=== PATIENT | male | born 1960 | race Caucasian/White ===

== ENCOUNTER 2024-10-08 11:16 | Emergency (ER) | payer OTHER ==
[~2024-10-08] VITALS: Ht 172.7 cm; Wt 122.5 kg
[2024-10-08 11:32] VITALS: PULSE 86; RESP 18; TEMP 99.7; O2SAT 100
== END 2024-10-08 13:08 | disposition home or self-care (01) ==
LOC: ER 11:34
DX: R33.9 Retention of urine, unspecified (principal); I10 Essential (primary) hypertension; E11.9 Type 2 diabetes mellitus without complications; E78.5 Hyperlipidemia, unspecified; I50.9 Heart failure, unspecified; I25.10 Atherosclerotic heart disease of native coronary artery without angina pectoris; Z95.810 Presence of automatic (implantable) cardiac defibrillator
CPT/HCPCS: 51700; 99283

== ENCOUNTER 2024-12-12 05:20 | Inpatient (IN) | payer OTHER ==
[2024-12-08 11:38] LABS: BASOPHILS # (AUTO) 0.1 (0.0-0.1); BASOPHILS % 0.6 % (0.0-1.0); EOSINOPHILS # (AUTO) 0.3 (0.0-0.4); EOSINOPHILS % 3.4 % (0.0-6.0); HEMOGLOBIN 11.3 g/dL (14.0-18.0); LYMPHOCYTES # (AUTO) 1.2 (1.0-3.2); LYMPHOCYTES % 13.1 % (18.0-39.1); MEAN CORPUSCULAR HGB CONC 29.7 g/dL (31-35); MEAN CORPUSCULAR VOLUME 94.1 fL (81-99); MONOCYTES # (AUTO) 0.7 (0.2-0.8); MONOCYTES % 7.5 % (4.4-11.3); NEUTROPHILS # (AUTO) 6.6 (2.1-6.9); NEUTROPHILS % 75.2 % (38.7-80.0); PLATELET COUNT 210 x10e3/uL (140-360); RED BLOOD COUNT 4.04 x10e6/uL (4.3-5.7); RED CELL DISTRIBUTION WIDTH 15.2 % (11.7-14.4); WHITE BLOOD COUNT 8.75 x10e3/uL (4.8-10.8)
[2024-12-08 11:55] LABS: INR 0.97; PROTHROMBIN TIME 13.5 seconds (11.9-14.5)
[2024-12-08 11:56] LABS: PARTIAL THROMBOPLASTIN TIME 32.6 seconds (23.8-35.5)
[2024-12-08 11:58] LABS: ANION GAP 14.7 mmol/L (8-16); CALCIUM 8.8 mg/dL (8.4-10.2); CREATININE, SERUM 2.33 mg/dL (0.72-1.25); POTASSIUM 4.7 mmol/L (3.5-5.1)
[2024-12-12] VITALS (8 sets, daily range): BP systolic 137–165; BP diastolic 79–93; PULSE 60–70; RESP 18–20; TEMP 97.5–98.1; O2SAT 95–100
[~2024-12-12] VITALS: Ht 172.7 cm; Wt 119.7 kg
[~2024-12-12 05:20] MED LIST: ATORVASTATIN CA20 MG PO; CARVEDILOL12.5 MG PO; DIOVAN160 MG PO; FINASTERIDE5 MG PO; FLOMAX0.4 MG PO; FUROSEMIDE40 MG PO; GLIPIZIDE5 MG PO; ISOSORBIDE MONO30 MG PO; LANTUS 3ML100 UNITS/ SQ; METOLAZONE5 MG PO
[2024-12-12] MEDS: CEFTRIAXONE 1 GM VIAL ONE (06:05)
[2024-12-12] MEDS: GENTAMICIN 80MG/NS 100 ML 200 ML IV ONE (06:06)
[2024-12-12] MEDS: SODIUM CHLORIDE 0.9% 1000ML 1,000 ML ONE (06:06)
[2024-12-12] MEDS ORDERED: FENTANYL CITRATE/PF 100MCG/2 ML INJ ONE (06:56)
[2024-12-12] MEDS ORDERED: LIDOCAINE HCL 2% LOCAL INJ 5 ML SDV VIAL INJ ONE (06:57)
[2024-12-12] MEDS ORDERED: MIDAZOLAM HCL 2 MG/2 ML VIAL ONE (06:57)
[2024-12-12] MEDS ORDERED: PROPOFOL IV EMULSION 10 MG/ML 20 ML VIAL ONE (06:57)
[2024-12-12] MEDS ORDERED: ROCURONIUM BROMIDE 1 ML IV ONE (06:57)
[2024-12-12] MEDS ORDERED: PHENYLEPHRINE HCL 1% 10 MG/ML VIAL ONE (07:13)
[2024-12-12] MEDS ORDERED: SUCCINYLCHOLINE CHLORIDE 20 MG/ML 10ML VIAL ONE (07:26)
[2024-12-12] MEDS ORDERED: FAMOTIDINE 20 MG/2 ML VIAL IV ONE (07:28)
[2024-12-12] MEDS ORDERED: ACETAMINOPHEN 1000 MG/100 ML 100 ML IV ONE (07:34)
[2024-12-12] MEDS ORDERED: ONDANSETRON HCL INJ 2MG/ML 2ML 2 MG/ML VIAL ONE (07:53)
[2024-12-12] MEDS ORDERED: SUGAMMADEX SODIUM 200 MG/2 ML VIAL IV ONE (07:55)
[2024-12-12] MEDS ORDERED: FUROSEMIDE INJ 10 MG/ML 4 ML VIAL ONE (08:10)
[2024-12-12] MEDS ORDERED: SEVOFLURANE INHAL SOLN 250 ML PEN BTL ONE (08:17)
[2024-12-12 10:42] LABS: BASOPHILS % 0.4 % (0.0-1.0); EOSINOPHILS # (AUTO) 0.2 (0.0-0.4); HEMATOCRIT 29.2 % (38.2-49.6); HEMOGLOBIN 9.1 g/dL (14.0-18.0); LYMPHOCYTES # (AUTO) 0.8 (1.0-3.2); LYMPHOCYTES % 9.7 % (18.0-39.1); MEAN CORPUSCULAR HEMOGLOBIN 27.7 pg (28-32); MEAN CORPUSCULAR HGB CONC 31.2 g/dL (31-35); MEAN CORPUSCULAR VOLUME 88.8 fL (81-99); MONOCYTES # (AUTO) 0.6 (0.2-0.8); NEUTROPHILS # (AUTO) 6.3 (2.1-6.9); NEUTROPHILS % 80.6 % (38.7-80.0); PLATELET COUNT 212 x10e3/uL (140-360); RED BLOOD COUNT 3.29 x10e6/uL (4.3-5.7); WHITE BLOOD COUNT 7.86 x10e3/uL (4.8-10.8)
[2024-12-12] MEDS: ACETAMINOPHEN/CODEINE 300MG - 30MG TAB PO PRN (10:47)
[2024-12-12] MEDS: PHENAZOPYRIDINE HCL 100 MG TAB PO PRN (10:53)
[2024-12-12] MEDS: SODIUM CHLORIDE 0.9% 1000ML 1,000 ML IV SCH (10:53)
[2024-12-12] MEDS: MEROPENEM 1 GM VIAL ONE (10:59)
[2024-12-12 11:16] LABS: CALCIUM 7.8 mg/dL (8.4-10.2); CREATININE, SERUM 2.18 mg/dL (0.72-1.25)
[2024-12-12] MEDS: HYDROMORPHONE 1MG/1ML INJ IV PRN (11:49)
[2024-12-13] VITALS (9 sets, daily range): BP systolic 149–164; BP diastolic 70–84; PULSE 62–82; RESP 18–20; TEMP 98.2–99; O2SAT 94–100
[2024-12-13 06:28] LABS: BASOPHILS % 0.5 % (0.0-1.0); EOSINOPHILS # (AUTO) 0.1 (0.0-0.4); EOSINOPHILS % 1.3 % (0.0-6.0); HEMATOCRIT 32.3 % (38.2-49.6); HEMOGLOBIN 9.6 g/dL (14.0-18.0); LYMPHOCYTES # (AUTO) 0.7 (1.0-3.2); MEAN CORPUSCULAR HGB CONC 29.7 g/dL (31-35); MEAN CORPUSCULAR VOLUME 94.2 fL (81-99); MONOCYTES # (AUTO) 0.6 (0.2-0.8); MONOCYTES % 6.9 % (4.4-11.3); NEUTROPHILS # (AUTO) 6.9 (2.1-6.9); NEUTROPHILS % 83.1 % (38.7-80.0); PLATELET COUNT 216 x10e3/uL (140-360); RED BLOOD COUNT 3.43 x10e6/uL (4.3-5.7); RED CELL DISTRIBUTION WIDTH 15.1 % (11.7-14.4); WHITE BLOOD COUNT 8.29 x10e3/uL (4.8-10.8)
[2024-12-13 06:47] LABS: ANION GAP 16.8 mmol/L (8-16); CALCIUM 8.4 mg/dL (8.4-10.2); CREATININE, SERUM 2.05 mg/dL (0.72-1.25); POTASSIUM 3.8 mmol/L (3.5-5.1)
[2024-12-13] MEDS ORDERED: DEXTROSE 50% SYRINGE 50 ML IV PRN (08:45)
[2024-12-13] MEDS ORDERED: ACETAMINOPHEN 325 MG TAB PO PRN (08:45)
[2024-12-13] MEDS: SODIUM CHLORIDE 0.45% 1,000 ML IV SCH (08:45)
[2024-12-13] MEDS ORDERED: HYDRALAZINE HCL 20 MG/ML VIAL IV PRN (08:45)
[2024-12-13] MEDS ORDERED: ONDANSETRON HCL INJ 2MG/ML 2ML 2 MG/ML VIAL IV PRN (08:45)
[2024-12-13] MEDS: GLIPIZIDE 5 MG TAB PO SCH (09:38)
[2024-12-13] MEDS: FINASTERIDE 5 MG TAB PO SCH (09:38)
[2024-12-13] MEDS: CARVEDILOL 12.5 MG TAB PO SCH (09:38)
[2024-12-13] MEDS: ISOSORBIDE MONONITRATE 30 MG TAB CR PO SCH (09:38)
[2024-12-13] MEDS: TAMSULOSIN HCL 0.4 MG CAP PO SCH (09:38)
[2024-12-13] MEDS: INSULIN LISPRO 100 UNIT/1 ML 3ML VIAL SQ SCH (11:30)
[2024-12-13] MEDS: INSULIN GLARGINE 100 UNITS/ML VIAL SQ SCH (16:30)
[2024-12-13] MEDS: LACTATED RINGER'S 1,000 ML INJ ONE (17:27)
[2024-12-13] MEDS: ATORVASTATIN 20 MG TAB PO SCH (22:37)
[2024-12-14] VITALS (10 sets, daily range): BP systolic 147–172; BP diastolic 81–90; PULSE 68–83; RESP 17–20; TEMP 97.4–98.3; O2SAT 94–100
[2024-12-14 07:00] LABS: BASOPHILS % 0.4 % (0.0-1.0); EOSINOPHILS # (AUTO) 0.2 (0.0-0.4); EOSINOPHILS % 2.2 % (0.0-6.0); HEMATOCRIT 33.4 % (38.2-49.6); LYMPHOCYTES # (AUTO) 1.1 (1.0-3.2); LYMPHOCYTES % 14.7 % (18.0-39.1); MEAN CORPUSCULAR HEMOGLOBIN 27.7 pg (28-32); MEAN CORPUSCULAR HGB CONC 29.9 g/dL (31-35); MEAN CORPUSCULAR VOLUME 92.5 fL (81-99); MONOCYTES # (AUTO) 0.7 (0.2-0.8); MONOCYTES % 9.9 % (4.4-11.3); NEUTROPHILS # (AUTO) 5.3 (2.1-6.9); NEUTROPHILS % 72.5 % (38.7-80.0); PLATELET COUNT 235 x10e3/uL (140-360); RED BLOOD COUNT 3.61 x10e6/uL (4.3-5.7); RED CELL DISTRIBUTION WIDTH 14.8 % (11.7-14.4); WHITE BLOOD COUNT 7.36 x10e3/uL (4.8-10.8)
[2024-12-14 07:31] LABS: ANION GAP 15.4 mmol/L (8-16); CALCIUM 8.7 mg/dL (8.4-10.2); CREATININE, SERUM 1.92 mg/dL (0.72-1.25)
[2024-12-14 07:41] LABS: POTASSIUM 3.4 mmol/L (3.5-5.1)
[2024-12-14] MEDS: Vancomycin IV 1 GM in SODIUM CHLORIDE 0.9% 250ML 250 ML IV SCH (17:33)
[2024-12-14] MEDS: GLIPIZIDE 5 MG TAB PO SCH (17:33)
[2024-12-14] MEDS: LOPERAMIDE HCL 2 MG CAP PO ONE (18:22)
[2024-12-14] MEDS: POTASSIUM CHLORIDE 20 MEQ TAB CR PO ONE (18:23)
[2024-12-14] MEDS: LACTATED RINGER'S 1,000 ML INJ SCH (18:23)
[2024-12-14] MEDS: METRONIDAZOLE 500 MG TAB PO SCH (21:28)
[2024-12-15] VITALS (11 sets, daily range): BP systolic 128–172; BP diastolic 66–86; PULSE 65–96; RESP 16–20; TEMP 97.1–98.6; O2SAT 96–100
[2024-12-15 06:59] LABS: BASOPHILS % 0.4 % (0.0-1.0); EOSINOPHILS # (AUTO) 0.2 (0.0-0.4); EOSINOPHILS % 3.1 % (0.0-6.0); HEMATOCRIT 34.2 % (38.2-49.6); HEMOGLOBIN 10.1 g/dL (14.0-18.0); LYMPHOCYTES % 14.2 % (18.0-39.1); MEAN CORPUSCULAR HEMOGLOBIN 27.7 pg (28-32); MEAN CORPUSCULAR HGB CONC 29.5 g/dL (31-35); MEAN CORPUSCULAR VOLUME 93.7 fL (81-99); MONOCYTES # (AUTO) 0.7 (0.2-0.8); MONOCYTES % 9.4 % (4.4-11.3); NEUTROPHILS # (AUTO) 5.1 (2.1-6.9); NEUTROPHILS % 72.6 % (38.7-80.0); PLATELET COUNT 237 x10e3/uL (140-360); RED BLOOD COUNT 3.65 x10e6/uL (4.3-5.7); RED CELL DISTRIBUTION WIDTH 14.6 % (11.7-14.4); WHITE BLOOD COUNT 7.09 x10e3/uL (4.8-10.8)
[2024-12-15 07:23] LABS: ANION GAP 15.3 mmol/L (8-16); CALCIUM 8.8 mg/dL (8.4-10.2); CREATININE, SERUM 1.63 mg/dL (0.72-1.25)
[2024-12-15 07:28] LABS: POTASSIUM 3.3 mmol/L (3.5-5.1)
[2024-12-16] VITALS (9 sets, daily range): BP systolic 145–191; BP diastolic 68–85; PULSE 72–77; RESP 18–20; TEMP 97.7–98.4; O2SAT 94–100
[2024-12-16 06:26] LABS: BASOPHILS % 0.3 % (0.0-1.0); EOSINOPHILS # (AUTO) 0.2 (0.0-0.4); EOSINOPHILS % 2.5 % (0.0-6.0); HEMATOCRIT 34.2 % (38.2-49.6); HEMOGLOBIN 10.4 g/dL (14.0-18.0); LYMPHOCYTES # (AUTO) 1.2 (1.0-3.2); LYMPHOCYTES % 15.2 % (18.0-39.1); MEAN CORPUSCULAR HEMOGLOBIN 27.9 pg (28-32); MEAN CORPUSCULAR HGB CONC 30.4 g/dL (31-35); MEAN CORPUSCULAR VOLUME 91.7 fL (81-99); MONOCYTES # (AUTO) 0.8 (0.2-0.8); MONOCYTES % 9.6 % (4.4-11.3); NEUTROPHILS # (AUTO) 5.7 (2.1-6.9); NEUTROPHILS % 72.1 % (38.7-80.0); PLATELET COUNT 265 x10e3/uL (140-360); RED BLOOD COUNT 3.73 x10e6/uL (4.3-5.7); RED CELL DISTRIBUTION WIDTH 14.7 % (11.7-14.4); WHITE BLOOD COUNT 7.91 x10e3/uL (4.8-10.8)
[2024-12-16 06:53] LABS: ANION GAP 16.5 mmol/L (8-16); CREATININE, SERUM 1.77 mg/dL (0.72-1.25); POTASSIUM 3.5 mmol/L (3.5-5.1)
[2024-12-16] MEDS: CARVEDILOL 12.5 MG TAB PO SCH (17:00)
[2024-12-16] MEDS: POTASSIUM CHLORIDE 20 MEQ TAB CR PO ONE (17:01)
[2024-12-17] VITALS (10 sets, daily range): BP systolic 132–177; BP diastolic 71–91; PULSE 72–79; RESP 18–19; TEMP 97.7–98.4; O2SAT 95–100
[2024-12-17] MEDS ORDERED: HYDROCODONE/APAP 10MG-325MG TAB PO PRN (00:45)
[2024-12-17 09:06] LABS: ANION GAP 16.7 mmol/L (8-16); CREATININE, SERUM 2.01 mg/dL (0.72-1.25); MAGNESIUM 1.7 MG/DL (1.3-2.1); PHOSPHORUS 2.7 MG/DL (2.3-4.7); POTASSIUM 3.7 mmol/L (3.5-5.1)
[2024-12-17] MEDS: Vancomycin IV 1 GM in SODIUM CHLORIDE 0.9% 250ML 250 ML IV SCH (09:53)
[2024-12-17] MEDS ORDERED: IOPAMIDOL 370 MG/ML 100 ML INFUS..BTL INJ ONE (11:27)
[2024-12-17] MEDS ORDERED: SODIUM CHLORIDE 0.9% 0 ML ONE (11:27)
[2024-12-17] MEDS: ATORVASTATIN 40 MG TAB PO SCH (21:08)
[2024-12-18] VITALS (12 sets, daily range): BP systolic 124–166; BP diastolic 70–91; PULSE 56–79; RESP 18–20; TEMP 97.5–98.2; O2SAT 93–100
[2024-12-18 07:35] LABS: ANION GAP 15.5 mmol/L (8-16); CREATININE, SERUM 2.03 mg/dL (0.72-1.25); POTASSIUM 3.5 mmol/L (3.5-5.1)
[2024-12-18] MEDS ORDERED: HYDRALAZINE HCL 20 MG/ML VIAL IV PRN (11:30)
[2024-12-18] MEDS: LINEZOLID 600 MG TAB PO SCH (12:25)
[2024-12-18] MEDS: ASPIRIN 81 MG ENTERIC COATED PO ONE (12:25)
[2024-12-18] MEDS: ENOXAPARIN 30 MG/0.3 ML SYR SC SCH (17:28)
[2024-12-19] VITALS (9 sets, daily range): BP systolic 140–162; BP diastolic 75–92; PULSE 69–79; RESP 16–20; TEMP 97.7–98.1; O2SAT 96–100
[2024-12-19 08:26] LABS: BASOPHILS % 0.3 % (0.0-1.0); EOSINOPHILS # (AUTO) 0.2 (0.0-0.4); EOSINOPHILS % 2.3 % (0.0-6.0); HEMATOCRIT 36.3 % (38.2-49.6); HEMOGLOBIN 10.8 g/dL (14.0-18.0); LYMPHOCYTES # (AUTO) 1.1 (1.0-3.2); LYMPHOCYTES % 14.3 % (18.0-39.1); MEAN CORPUSCULAR HEMOGLOBIN 27.6 pg (28-32); MEAN CORPUSCULAR HGB CONC 29.8 g/dL (31-35); MEAN CORPUSCULAR VOLUME 92.6 fL (81-99); MONOCYTES # (AUTO) 0.6 (0.2-0.8); MONOCYTES % 8.2 % (4.4-11.3); NEUTROPHILS # (AUTO) 5.6 (2.1-6.9); NEUTROPHILS % 74.8 % (38.7-80.0); PLATELET COUNT 248 x10e3/uL (140-360); RED BLOOD COUNT 3.92 x10e6/uL (4.3-5.7); RED CELL DISTRIBUTION WIDTH 14.8 % (11.7-14.4); WHITE BLOOD COUNT 7.54 x10e3/uL (4.8-10.8)
[2024-12-19] MEDS: SACUBITRIL/VALSARTAN 24MG/26MG 1 EA TAB PO SCH (08:46)
[2024-12-19] MEDS: ASPIRIN 81 MG ENTERIC COATED PO SCH (08:49)
[2024-12-19 08:52] LABS: ANION GAP 16.7 mmol/L (8-16); CALCIUM 8.9 mg/dL (8.4-10.2); CREATININE, SERUM 2.04 mg/dL (0.72-1.25); POTASSIUM 3.7 mmol/L (3.5-5.1)
[2024-12-19] MEDS ORDERED: ISOSORBIDE MONONITRATE 30 MG TAB CR PO SCH (09:00)
[2024-12-19] MEDS: AMLODIPINE BESYLATE 5 MG TAB PO ONE (18:29)
[2024-12-19] MEDS: ATORVASTATIN 40 MG TAB PO SCH (20:46)
[2024-12-20] VITALS (9 sets, daily range): BP systolic 126–159; BP diastolic 58–79; PULSE 65–78; RESP 18–21; TEMP 97.8–98.3; O2SAT 97–100
[2024-12-20 06:29] LABS: BASOPHILS % 0.4 % (0.0-1.0); EOSINOPHILS # (AUTO) 0.3 (0.0-0.4); EOSINOPHILS % 3.1 % (0.0-6.0); HEMATOCRIT 38.3 % (38.2-49.6); HEMOGLOBIN 11.4 g/dL (14.0-18.0); LYMPHOCYTES # (AUTO) 1.4 (1.0-3.2); MEAN CORPUSCULAR HEMOGLOBIN 27.4 pg (28-32); MEAN CORPUSCULAR HGB CONC 29.8 g/dL (31-35); MEAN CORPUSCULAR VOLUME 92.1 fL (81-99); MONOCYTES # (AUTO) 0.7 (0.2-0.8); MONOCYTES % 8.9 % (4.4-11.3); NEUTROPHILS # (AUTO) 5.6 (2.1-6.9); NEUTROPHILS % 70.2 % (38.7-80.0); PLATELET COUNT 260 x10e3/uL (140-360); RED BLOOD COUNT 4.16 x10e6/uL (4.3-5.7); RED CELL DISTRIBUTION WIDTH 14.8 % (11.7-14.4)
[2024-12-20 06:56] LABS: ANION GAP 15.6 mmol/L (8-16); CREATININE, SERUM 2.03 mg/dL (0.72-1.25); POTASSIUM 3.6 mmol/L (3.5-5.1)
[2024-12-20] MEDS: AMLODIPINE BESYLATE 5 MG TAB PO SCH (08:28)
[2024-12-21] VITALS (8 sets, daily range): BP systolic 115–157; BP diastolic 58–95; PULSE 65–82; RESP 18–22; TEMP 97.6–98.3; O2SAT 94–100
[2024-12-22] VITALS (48 sets, daily range): BP systolic 105–155; BP diastolic 37–107; PULSE 64–95; RESP 9–36; TEMP 97.6–98.1; O2SAT 92–100
[2024-12-22 09:47] LABS: ANION GAP 17.2 mmol/L (8-16); CALCIUM 9.4 mg/dL (8.4-10.2); CREATININE, SERUM 2.16 mg/dL (0.72-1.25); POTASSIUM 4.2 mmol/L (3.5-5.1)
[2024-12-22] MEDS ORDERED: AMLODIPINE BESYLATE 5 MG TAB PO ONE (16:30)
[2024-12-22] MEDS: HYDROCODONE/APAP 5MG-325MG TAB PO PRN (19:44)
[2024-12-23] VITALS (40 sets, daily range): BP systolic 108–164; BP diastolic 54–98; PULSE 74–91; RESP 9–23; TEMP 97.8–97.9; O2SAT 93–100
[2024-12-23] MEDS ORDERED: AMLODIPINE BESYLATE 5 MG TAB PO SCH (09:00)
[2024-12-23] MEDS: CARVEDILOL 12.5 MG TAB PO SCH (09:00)
== END 2024-12-23 17:23 | disposition short-term general hospital (02) | DRG 713 ==
LOC: OR 05:20 → PACU V 08:48 → MED/SURG3 10:22 → ICU 12-22 12:56
PROVIDERS: ADMIT Internal Medicine; ATTEND Internal Medicine
PROC: BT141ZZ Fluoroscopy of Kidneys, Ureters and Bladder using Low Osmolar Contrast (ICD-10-PCS; 2024-12-12)
PROC: 0VB08ZZ Excision of Prostate, Via Natural or Artificial Opening Endoscopic (ICD-10-PCS; principal; 2024-12-12 07:26)
PROC: 5A09357 Assistance with Respiratory Ventilation, Less than 24 Consecutive Hours, Continuous Positive Airway Pressure (ICD-10-PCS; 2024-12-13)
PROC: 5A09357 Assistance with Respiratory Ventilation, Less than 24 Consecutive Hours, Continuous Positive Airway Pressure (ICD-10-PCS; 2024-12-14)
PROC: 4B02XSZ Measurement of Cardiac Pacemaker, External Approach (ICD-10-PCS; 2024-12-19)
DX: N40.1 Benign prostatic hyperplasia with lower urinary tract symptoms (principal); I63.9 Cerebral infarction, unspecified; I13.0 Hypertensive heart and chronic kidney disease with heart failure and stage 1 through stage 4 chronic kidney disease, or unspecified chronic kidney disease; I50.22 Chronic systolic (congestive) heart failure; N13.8 Other obstructive and reflux uropathy; N13.6 Pyonephrosis; E87.29 Other acidosis; G81.91 Hemiplegia, unspecified affecting right dominant side; R47.01 Aphasia; Z68.41 Body mass index [BMI] 40.0-44.9, adult; I67.89 Other cerebrovascular disease; R29.810 Facial weakness; R47.1 Dysarthria and anarthria; N32.89 Other specified disorders of bladder; E11.22 Type 2 diabetes mellitus with diabetic chronic kidney disease; N18.32 Chronic kidney disease, stage 3b; E11.42 Type 2 diabetes mellitus with diabetic polyneuropathy; Z79.4 Long term (current) use of insulin; B95.2 Enterococcus as the cause of diseases classified elsewhere; E66.01 Morbid (severe) obesity due to excess calories; N41.9 Inflammatory disease of prostate, unspecified; N32.81 Overactive bladder; E78.5 Hyperlipidemia, unspecified; I65.22 Occlusion and stenosis of left carotid artery; N31.9 Neuromuscular dysfunction of bladder, unspecified; R19.7 Diarrhea, unspecified; E87.6 Hypokalemia; R31.0 Gross hematuria; Z91.041 Radiographic dye allergy status; Z45.02 Encounter for adjustment and management of automatic implantable cardiac defibrillator; I67.2 Cerebral atherosclerosis; M48.02 Spinal stenosis, cervical region; M47.812 Spondylosis without myelopathy or radiculopathy, cervical region; M50.321 Other cervical disc degeneration at C4-C5 level; G47.33 Obstructive sleep apnea (adult) (pediatric); R32 Unspecified urinary incontinence; Z71.3 Dietary counseling and surveillance; Z79.899 Other long term (current) drug therapy
CPT/HCPCS: 36415; 36568; 70450; 71046; 72125; 74230; 74420; 80048; 80202; 82948; 83036; 83735; 84100; 85025; 85610; 85730; 87086; 87186; 88305; 93005; 93306; 93880; 94660; 94799; 99252; C1758; J0330; J0696; J1171; J1580; J1650; J1815; J1940; J2003; J2185; J2250; J2371; J2405; J7030; J7050; Q9967